=== PATIENT | female | born 1980 | race Caucasian/White ===

== ENCOUNTER 2023-12-24 14:31 | Outpatient (CLI) | payer MEDICAID, SELFPAY ==
[2023-12-24 11:54] LABS: Abs Immature Grans 0.03 10^3/uL (0.0-0.06); Absolute Eosinophil Count 0.54 10^3/uL (0.0-0.7); Absolute Lymphocyte Count 1.84 10^3/uL (1.2-3.4); Absolute Neutrophil Count 3.96 10^3/uL (1.2-6.7); Basophils % 1.4; Eosinophils % 7.6; HCT 41.4 % (36.0-46.0); HGB 13.4 g/dL (11.2-15.7); Immature Grans % 0.4; MCH 28.1 pg (27.0-33.0); MCHC 32.4 % (32.0-36.0); MCV 87 fL (80-95); MPV 10.3 fL (8.0-11.0); Monocytes % 8.5; Neutrophils % 56.1; Platelet Count 266 10^3/uL (130-400); RBC 4.77 10^6/uL (3.93-5.22); RDW-SD 41.1 fL; WBC 7.07 10^3/uL (4.4-10.8)
[2023-12-24 13:22] LABS: ALT 26 U/L (14-59); AST 18 U/L (15-37); Albumin 3.9 g/dL (3.4-5.0); Alkaline Phosphatase 60 U/L (46-116); Anion Gap 8.1 mmol/L (3-11); BUN 13 mg/dL (7-18); Bilirubin, Total 0.3 mg/dL (0.2-1.0); CO2 28.9 mmol/L (21.0-32.0); CREATININE 0.7 mg/dL (0.55-1.02); Calcium 8.8 mg/dL (8.5-10.1); Chloride 105 mmol/L (98-107); Estimated GFR 111.36 (mL/min/1.73m2); Ferritin 15 ng/mL (8-252); Folate 16.3 ng/mL (8.6-20.0); Glucose 91 mg/dL (74-106); Potassium 4.1 mmol/L (3.5-5.1); Sodium 142 mmol/L (136-145); TSH (W/Ref FT4) 0.88 uIU/mL (0.36-3.74); Total Protein 7.3 g/dL (6.4-8.2); Vitamin B12 302 pg/mL (193-986)
[2023-12-24 13:40] LABS: C-Reactive Protein < 0.50 mg/dL (<or=0.5)
[2023-12-25 13:23] LABS: ANA Interpretation Negative (Negative)
== END 2023-12-24 14:32 | disposition home or self-care (01) ==
LOC: LBO 14:32
PROVIDERS: PCP Family Medicine; Visit Provider Surgery
DX: K62.89 Other specified diseases of anus and rectum (principal); D12.6 Benign neoplasm of colon, unspecified; K62.5 Hemorrhage of anus and rectum
CPT/HCPCS: 36415; 80053; 82607; 82728; 82746; 84443; 85025; 86038; 86140

== ENCOUNTER 2024-01-22 08:19 | Day surgery (SDC) | payer MEDICAID, SELFPAY ==
--- NOTE | 2024-01-21 22:04 | PDOC.DSDIS_ITS ---
Date of service: 01/22/24 Time of Service: 09:54 Discharge Plan Disposition Patient Disposition: Home Condition: Good Discharge Details Reason For Visit: colon can screen Attending Provider: Kimberly Malik Primary Care Provider: Dimple Overton Home Meds and New Rx's Prescriptions: Continued epinephrine [EpiPen 2-Raheem] 0.3 mg/0.3 mL auto-injector 0.3 mg IM Q5-15M PRN (Reason: hypersensitivity reaction) Qty: 2 0RF Rx Instructions: do not exceed 3 doses per episode Discontinued polyethylene glycol 3350 17 gram/dose powder 17 g PO ONCE Qty: 238 0RF Rx Instructions: Take per colonoscopy instructions provided by ordering providers office bisacodyl [Dulcolax (bisacodyl)] 5 mg tablet,delayed release (DR/EC) 5 mg PO ONCE Qty: 4 0RF Rx Instructions: Take per colonoscopy instructions provided by ordering providers office Discharge Instructions Additional Instructions: DSU Colonoscopy Post- Op Instructions Instructions for Everyone who is given Anesthesia: For your safety, please do the following for the next twenty-four (24) hours: *Do Not operate a motor vehicle (car, truck, motorcycle, etc.) *Do Not drink alcoholic beverages or use any recreational drugs for the first 24 hours or while taking pain medications. The medications in your body may have a reaction that can be dangerous. *Do Not make any important decisions or sign any important papers. Findings: Normal colon Follow up: We did do biopsies today because of your history of proctitis. My office will send you a letter in 2 to 3 weeks time with the results of the biopsy, and when we do want to repeat the colonoscopy, most likely 10 years time. 1. No lifting over 20 pounds or strenuous activity for the first 24 hours after your procedure. After 24 hours there are no restrictions on your activity but you may feel fatigued for a few days. 2. After you arrive home you may have a light meal and return to your normal diet as you can tolerate it without feeling sick to your stomach. 3. You may have a bloated, gaseous feeling in your belly (abdomen) after a colonoscopy. Passing gas and belching will help. Walking or lying down on your left side with your knees flexed may relieve the discomfort. Call the office at [phone] (Office) or [phone] (Hospital) right away if you notice any of the following: a.Vomiting of blood or ?coffee ground stools?. b.Rectal bleeding 1Tbsp, blood clots or continuous bleeding. c.Severe belly (abdominal) pain. d.A hard distended belly (abdomen) and an inability to pass gas. 4. Please don?t expect to have a normal BM (bowel movement) for 2-3 days after your procedure. 5. If there are questions regarding the findings of your procedure, please contact your doctor 6. If you are unable to contact your doctor with a problem, contact the hospital at [phone]. 7. Continue all your regular medications unless directed otherwise. I understand the above instructions and have no questions. Signature of Patient or Adult Escort Name of Responsible Adult Escort Signature of Nurse Date/Time Activity:: see above Diet:: see above Discharge Orders Discharge Orders: Discharge Order (Routine); Ordered 01/22/24 Ordered By: Kimberly Malik DS: Diagnosis Discharge Diagnosis (1) Proctitis: Status: Acute (2) Rectal bleeding: Status: Acute (3) Serrated adenoma of colon: Asessment and Plan: The patient is seen and examined after their colonoscopy.? The patient has been able to pass gas.? They are not having abdominal pain.? They have been able to tolerate liquids and a snack.? They do not have any nausea or vomiting.? They are not having any chest pain or shortness of breath.??? They are not having any rectal bleeding. Their vital signs have been stable-see nursing notes. We discussed findings during their colonoscopy, and any biopsies that were done/polyps that were removed. The patient will be sent a letter with any biopsy results, and when to repeat the colonoscopy.-see discharge instructions. Patient was given explicit instructions to follow-up regarding colonoscopy-refer to discharge instructions.? We reviewed resumption of medications. Patient verbalized understanding and discharged in stable and satisfactory condition- See nursing notes.
--- NOTE | 2024-01-21 22:06 | W.COLOREPORT ---
Date of service: 01/22/24 Time of Service: 09:51 Colonoscopy Report Date of procedure: 01/22/24 Pre-op diagnosis general: hx A. adenoma/Proctitis/remote fam Hx Post-op diagnosis procedure note: other (Normal:) Surgeon: Kimberly Malik Anesthesia Type: General:No Airway Estimated blood loss (mL): 1 Pathology: other Complications: None Disposition: same day Prep: Miralax/Dulcolax Procedure Description: After informed consent was obtained the patient was taken to the procedure room and placed in a left decubitous position. Monitors were applied and a time out was done. The patients name, date of , procedure, allergies to medications and metal in their body was reviewed. The patient was then sedated. Once sedated and comfortable a rectal exam was done. External exam was normal. Internal exam revealed a normal sphincter tone and no palpable masses. The scope was then introduced and retrofelexed. No internal hemorrhoids were identified. The scope was then advanced to the cecum without difficulty. The TI and appendiceal orifice were identified. The scope was then slowly retracted over [] minutes back into the rectum. There were no polyps, AVMs, diverticula seen. She does have a history of ulcerative colitis. Biopsies were taken of the terminal ileum and every 10 cm into the rectum. There are some mild irritation in the distal rectum, but this is probably just from prepping. All specimens are retrieved and no bleeding is noted. The scope was removed and the patient was woken up and taken back to Same day surgery in stable condition. The patient tolerated the procedure well and there were no immediate complications. Follow up: The patient should follow up in 10 years, unless there is any abnormality noted on biopsies. Unless they develop changes in bowel habits or other new gastrointestinal complaints. [place] Bowel Prep [place] Bowel Prep Right Colon: 3 Left Colon: 3 Transverse Colon: 3 Total Score: 9
--- NOTE | 2024-01-22 07:32 | ANES.PREOP_ITS ---
General Info Date of Service Date Performed: 01/22/24 Height: 5 ft 6 in Weight: 78.925 kg Body Mass Index (BMI): 28.0 Surgical Procedure: Operation Date: 01/22/24 09:50 Proposed Procedure Side Surgeon siobhan Malik, DO Meds Allergies and Home Medications Allergies Allergy/AdvReac Type Severity Reaction Status Date / Time sulfamethoxazole Allergy Skin Rash Verified 01/22/24 08:32 [From ] trimethoprim [From ] Allergy Skin Rash Verified 01/22/24 08:32 Home Medication Medication Instructions Recorded epinephrine 0.3 mg/0.3 mL 0.3 mg (0.3 mL) IM Q5-15M PRN 08/20/23 injection, auto-injector (EpiPen hypersensitivity reaction #2 ea 2-Raheem) Current Visit Medications: Current Medications Generic Name Dose Route Start Last Admin Trade Name Freq PRN Reason Stop Dose Admin Hyoscyamine Sulfate 0.125 mg 01/22/24 10:02 Hyoscyamine 0.125 Mg Sl/Oral/Chew SL 02/21/24 10:01 DIRECTED PRN Ringer's Solution 1,000 mls @ 80 mls/hr 01/22/24 06:00 IV 02/20/24 23:59 INFUSION [facility] IV Miscellaneous Supplies 1 each 01/22/24 06:00 Iv Access IV 02/20/24 23:59 DIRECTED JAEL Ondansetron HCl 4 mg 01/22/24 10:02 Ondansetron 4 Mg/2 Ml Vial IVP 02/21/24 10:01 Q4H PRN PRN Nausea / Vomiting Sodium Chloride 0 ml 01/22/24 06:00 Normal Saline Flush 10 Ml Syr IV 02/20/24 23:59 PRN PRN Sodium Chloride 0 ml 01/22/24 06:00 Normal Saline 10 Ml Vial IJ 02/20/24 23:59 DIRECTED PRN Sterile Water 0 ml 01/22/24 06:00 Water,Injection,Sterile 10 Ml Vial IJ 02/20/24 23:59 DIRECTED PRN PFSH Active Problems Active Problems: Problem Status Onset Code Rectal bleeding K62.5 Proctitis K62.89 Bilateral hearing loss H91.93 Medical History Medical History Allergy Pt. states facial swelling of unknown origin. Carries EpiPen just in case. History of bursitis Serrated adenoma of colon (~2014) [facility] Surgical History Surgical History Hx of colonoscopy Hx of shoulder surgery Tobacco Smoking/Tobacco Use Status: Never Alcohol Alcohol Intake: current Alcohol intake frequency: a few times a week Substance Use Substance use: Occasionally Substance use type: marijuana Details: edible Vital Signs and Lab Results Vital Signs Most Recent Vital Signs in EMR: Temp Pulse Resp BP Pulse Ox 36.5 C 71 18 108/62 100 01/22/24 08:34 01/22/24 08:34 01/22/24 08:34 01/22/24 08:34 01/22/24 08:34 Lab Results Blood Type / Crossmatch: No Data to Display Complete Blood Count: White Blood Count 7.07 10^3/uL (4.4-10.8) 12/24/23 11:29 Red Blood Count 4.77 10^6/uL (3.93-5.22) 12/24/23 11:29 Hemoglobin 13.4 g/dL (11.2-15.7) 12/24/23 11:29 Hematocrit 41.4 % (36.0-46.0) 12/24/23 11:29 Platelet Count 266 10^3/uL (130-400) 12/24/23 11:29 Complete Metabolic Panel: Sodium 142 mmol/L (136-145) 12/24/23 11:29 Potassium 4.1 mmol/L (3.5-5.1) 12/24/23 11:29 Chloride 105 mmol/L (98-107) 12/24/23 11:29 Carbon Dioxide 28.9 mmol/L (21.0-32.0) 12/24/23 11:29 BUN 13 mg/dL (7-18) 12/24/23 11:29 Creatinine 0.7 mg/dL (0.55-1.02) 12/24/23 11:29 Est GFR (CKD-EPI 2020) 111.36 (mL/min/1.73m2) 12/24/23 11:29 Calcium 8.8 mg/dL (8.5-10.1) 12/24/23 11:29 Albumin 3.9 g/dL (3.4-5.0) 12/24/23 11:29 Glucose 91 mg/dL (74-106) 12/24/23 11:29 C-Reactive Protein < 0.50 mg/dL (<or=0.5) 12/24/23 11:29 Liver Function Panel: Alanine Aminotransferase (ALT/SGPT) 26 U/L (14-59) 12/24/23 11: 29 Aspartate Amino Transf (AST/SGOT) 18 U/L (15-37) 12/24/23 11:29 Coagulation Panel: No Data to Display Cardiac Panel: No Data to Display Arterial Blood Gas: No Data to Display Venous Blood Gas: No Data to Display Pancreas Panel: No Data to Display Thyroid Panel: Thyroid Stimulating Hormone (TSH) 0.88 uIU/mL (0.36-3.74) 12/23 11:29 Infectious Disease: No Data to Display Blood Cultures: No Data to Display Toxicology Panel: No Data to Display Panel: No Data to Display Anesthesia Assessment and Plan Anesthesia History Personal History: No History of Anesthesia Complications Family History: No Family History of Anesthesia Complications Exercise Tolerance Exercise Tolerance: Metabolic Equivalents>4 Cardiac & Pulmonary Exam Cardiac Exam: Normal S1/S2 Heart Sounds Pulmonary Exam: Clear Bilateral Breath Sounds Implantable Cardiac Device Does patient have a Pacemaker or an ICD?: No Airway Exam Known Difficult Airway: No Mallampati Class: 2 Mouth Opening: Normal (> 3cm) Thyromental Distance: Greater than 3 cm Neck Range of Motion: Full ROM Neck Circumference: Normal Teeth Condition: Normal Dentition ASA Classification ASA Score: ASA 2 Emergency Case?: No NPO Status NPO Status: NPO Clears >2 hours, Solids >8 hours Status Status: Negative HCG Anesthesia Plan Resuscitation Status: Full Code Anesthesia Technique: General Anesthesia Airway Planned: Natural Airway Monitors Used: Standard Monitors Preoperative Comments:: 43 yo female for colo. Sig PMHx: never smoker, occ EtOH/cannabis
[2024-01-22 08:34] VITALS: BP 108/62; PULSE 71; RESP 18; TEMP 36.5; O2SAT 100
[2024-01-22 08:49] VITALS: BMI 28.0
[2024-01-22] MEDS: Lactated Ringers 1,000 ML 80 ML IV (09:00)
--- NOTE | 2024-01-22 09:27 | BOWEL_PTH ---
PATIENT: Tamara Bello LOC: [facility] U#:[id number] AGE/SX: 43/F ROOM: RE01/22/[address]: Kimberly Malik : 1980 BED: DIS: 01/22/2024 SPEC #: [id number] RECD: 01/22/24 12:36 STATUS: QUITA MARTINS #: [id number] WILDER: 01/22/24 09:[address]: Kimberly Malik DEPT: Surgical Specimen RECD BY: Bethany Harden ENTERED: 01/22/24 12:43 SP TYPE: Bowel OTHR DR: Dimple Overton Tissues: 1 - BIOPSY BOWEL 2 - BIOPSY BOWEL 3 - BIOPSY BOWEL 4 - BIOPSY BOWEL 5 - BIOPSY BOWEL 6 - BIOPSY BOWEL 7 - BIOPSY BOWEL 8 - BIOPSY BOWEL 9 - BIOPSY BOWEL 10 - BIOPSY BOWEL 11 - BIOPSY BOWEL Procedures: GROSS AND MICRO LEVEL 4 Comments: [id number]
[2024-01-22 09:47] VITALS: BP 96/54; PULSE 55; RESP 16; TEMP 36.8; O2SAT 99
[2024-01-22 09:56] VITALS: BP 102/67; PULSE 54; RESP 16; TEMP 36.8; O2SAT 97
--- NOTE | 2024-01-22 09:58 | W.ANESPOSTOP ---
Postoperative Evaluation Date, Time and Location Date Performed: 01/22/24 Time Performed: 09:58 Patient Location: Day Surgery Unit Vital Signs Most Recent Imported Vital Signs: Most Recent Vital Signs Temp Pulse Resp BP Pulse Ox 36.8 C 54 L 16 102/67 97 01/22/24 09:56 01/22/24 09:56 01/22/24 09:56 01/22/24 09:56 01/22/24 09:56 Pain Score Most Recent Pain Score: Most Recent Pain Score Pain Level 0 01/22/24 09:56 Assessment Mental Status: Awake (Alert & Oriented to Patient Baseline) Airway and Respiratory Function: Patent airway with normal (patient baseline) respiratory exam Cardiovascular Function: Hemodynamically Stable Hydration Status: Adequately Hydrated Nausea & Vomiting: No Nausea or Vomiting Pain: Pt. Denies Any Pain Peripheral Nerve Block: Patient did not receive a nerve block
== END 2024-01-22 10:27 | disposition home or self-care (01) ==
PROVIDERS: PCP Family Medicine; Visit Provider Surgery
PROC: 0DJD8ZZ Inspection of Lower Intestinal Tract, Via Natural or Artificial Opening Endoscopic (ICD-10-PCS; CPT 45378; principal; 2024-01-22 09:45)
DX: K62.89 Other specified diseases of anus and rectum (principal); K62.5 Hemorrhage of anus and rectum; Z12.11 Encounter for screening for malignant neoplasm of colon; K50.10 Crohn's disease of large intestine without complications
CPT/HCPCS: 45380; 88305; J2001; J2704

== ENCOUNTER 2025-04-06 21:15 | Emergency (ER) | payer MEDICAID, SELFPAY ==
[2025-04-06 21:22] VITALS: BP 120/72; PULSE 77; RESP 16; TEMP 36.8; O2SAT 100
[2025-04-06] MEDS: Famotidine 20 MG/2 ML VIAL IVP (21:39)
--- NOTE | 2025-04-06 21:52 | ED.GENADUL_ITS ---
Discharge Plan Disposition Patient Disposition: Home Condition: Stable Discharge Details Clinical Impression: Anaphylaxis Primary Care Provider: Dimple Overton ED Provider: Jose Eduardo Khan Home Meds and New Rx's Prescriptions: New prednisone 20 mg tablet 60 mg PO DAILY 4 Days Qty: 12 0RF Continued epinephrine 0.3 mg/0.3 mL auto-injector 0.3 mg IM Q5-15M PRN (Reason: hypersensitivity reaction) Qty: 2 0RF Rx Instructions: do not exceed 3 doses per episode Discharge Instructions Additional Instructions: You were treated for anaphylaxis from being stung. If you have any itching symptoms you can take Benadryl, you can take 25 to 50 mg every 6 hours as needed. You can also try taking a daily Claritin or Zyrtec. Take the prednisone daily. If you develop difficulty breathing or gastrointestinal symptoms such as severe abdominal pain or vomiting with the rash administer the EpiPen and return to the emergency department for reevaluation HPI General Mode of arrival: ambulatory . Date/Time Provider Initiated Documentation: 04/06/25 21:30 . Limitations to Documentation: no limitations . Information obtained by: patient . History of Present Illness 45 year old F presents to the emergency department with the chief complaint of stung by hornet, described as moderate, Patient started experiencing this hour(s) (1) and it has been constant. No relieving factors improve symptom(s), No exacerbating factors reported . Patient notes denies fever/chills and shortnes s of breath. Patient did receive the following treatments prior to arrival, none Related Data Home Medications ?Medication ?Instructions ?Recorded ?Confirmed epinephrine 0.3 mg/0.3 mL 0.3 mg (0.3 mL) IM Q5-15M LA N 04/06/25 injection, auto-injector hypersensitivity reaction #2 ea prednisone 20 mg tablet 60 mg (3 x 20 mg) PO DAILY 4 days 04/06/25 #12 tabs Previous Rx's ?Medication ?Instructions ?Recorded epinephrine 0.3 mg/0.3 mL 0.3 mg (0.3 mL) IM Q5-15M LA N 04/06/25 injection, auto-injector hypersensitivity reaction #2 ea prednisone 20 mg tablet 60 mg (3 x 20 mg) PO DAILY 4 days 04/06/25 #12 tabs Allergies Allergy/AdvReac Type Severity Reaction Status Date / Time sulfamethoxazole (From Allergy Skin Rash Verified 04/06/25 21:31 ) trimethoprim (From ) Allergy Skin Rash Verified 04/06/25 21:31 General Stated Complaint: Allergic DANUTA: 3 Review of Systems All systems reviewed & are unremarkable except as noted in HPI and below Constitutional Constitutional: Denies chills and Denies fever(s) Cardiovascular Cardiovascular: Denies chest pain and Reports dyspnea Respiratory Respiratory: Denies cough and Reports dyspnea Gastrointestinal Gastrointestinal: Denies abdominal pain, Denies nausea and Denies vomiting Integumentary/Breasts Skin/Breast: Reports rash Exam Const General: no acute distress Orientation: alert HENMT Head: normal to inspection Ears: external ears normal General nose exam: external nose normal Mouth: moist mucous membranes Eyes General: appearance normal, both eyes and all related structures Neck Neck: normal visual inspection Resp Effort & Inspection: normal respiratory effort and able to speak in complete sentences Auscultation: clear to auscultation bilaterally Cardio Rate: regular rate Skin General skin exam: erythema Neuro General: patient alert and patient oriented x3 Extrem General: normal to inspection Psych Mental Status: mental status grossly normal Course Vital Signs Vital signs: Vital Signs Temperature 36.8 C 04/06/25 21:22 Pulse 77 04/06/25 21:22 Respiratory Rate 16 04/06/25 21:22 Blood Pressure 120/72 04/06/25 21:22 Pulse Oximetry 100 04/06/25 21:22 Temperature 36.8 C 04/06/25 21:22 Temperature Source Tympanic 04/06/25 21:22 Pulse 77 04/06/25 21:22 Respiratory Rate 16 04/06/25 21:22 Respiratory Effort Normal, Non-Labored 04/06/25 21:42 Respiratory Pattern Normal 04/06/25 21:42 Blood Pressure 120/72 04/06/25 21:22 Blood Pressure Position Supine 04/06/25 21:22 Pulse Oximetry 100 04/06/25 21:22 Oxygen Delivery Method Room Air 04/06/25 21:22 Oxygen Flow Rate 0 04/06/25 21:22 Medical Decision Making 45-year-old female comes in after she was stung by a hornet about 5 times start developing hives, had nausea and vomiting and also some dyspnea. She was given IM epinephrine, she took 50 mg of oral Benadryl and EMS gave her 50 mg of IV Benadryl along with 125 mg of Solu-Medrol. She states her symptoms have significantly improved. She has no respiratory or GI symptoms. She still has some hives on her arms and legs. She says things are improving than when they first started. She has clear lung sounds, no abdominal tenderness. History and exam are consistent with anaphylaxis that is improving with treatments. Will add on IV famotidine and observe Differential Diagnosis Differential Diagnosis: Anaphylaxis, allergic reaction PFSH All Active Problems (Updated 04/06/25 @ 22:34 by Jose Eduardo Khan MD) Anaphylaxis (Acute) Rectal bleeding (Acute) Proctitis (Acute) Bilateral hearing loss (Acute) Medical History (Updated 04/06/25 @ 22:34 by Jose Eduardo Khan MD) Allergy Pt. states facial swelling of unknown origin. Carries EpiPen just in case. History of bursitis Serrated adenoma of colon (~2014) [facility] Surgical History (Updated 01/25/24 @ 11:27 by Dalia Narvaez) Hx of colonoscopy (~01/2024) Hx of shoulder surgery Social History Smoking/Tobacco Use Status: Never Smoking risk assessment performed?: Yes Alcohol Intake: current Alcohol Intake frequency: a few times a week Drug use: Occasionally Substance use type: marijuana Details: edible Housing: house Do you feel safe at home: Yes Do you feel safe in your relationship?: Yes
[2025-04-06] MEDS: EPINEPHrine 0.3 MG KIT (22:49)
[2025-04-06 22:55] VITALS: BP 118/68; PULSE 72; RESP 16; O2SAT 99
== END 2025-04-06 22:55 | disposition home or self-care (01) ==
LOC: ER 22:59
PROVIDERS: Emergency Provider Emergency Medicine; PCP Family Medicine
DX: T63.461A Toxic effect of venom of wasps, accidental (unintentional), initial encounter (principal); T78.2XXA Anaphylactic shock, unspecified, initial encounter; X58.XXXA Exposure to other specified factors, initial encounter
CPT/HCPCS: 99283; J0165